=== PATIENT | female | born 1985 | race Caucasian/White ===

== ENCOUNTER 2016-08-23 21:04 | Emergency (ER) | payer MEDICAID ==
[2016-08-23] MEDS ORDERED: OXYCODONE-ACETAMINOPHEN 5-325 MG TABLET PO ONE (23:46)
--- NOTE | 2016-08-23 23:48 | ER Document Report ---
HPI - HPI Patient complains to provider of: Lower back injury Pain Level: 5 Context: The patient is a 31-year-old female who comes emergency department for chief complaint of pain in her lower back, radiating mainly down her left leg posteriorly, she states that she had a history of nerve impingement, takes gabapentin and Murdock for this at home. Patient states that she recently moved here and was helping move off the truck, she states this was a couple of days ago, she states she slipped off of the back of the ramp and landed on her buttocks area. She states she urinated on herself when this happened, however she denies urinary or bowel incontinence or numbness since that time. She states pain has increased. - DERM Skin Color: Normal Past Medical History - General Information source: Patient - Social History Smoking Status: Never Smoker Frequency of alcohol use: None Drug Abuse: None Lives with: Family Family History: Reviewed & Not Pertinent - Note Patient has suicidal ideation: No Patient has homicidal ideation: No - Medical History Medical History: Negative Renal/ Medical History: Denies: Hx Peritoneal Dialysis Surgical Hx: Negative - Immunizations Immunizations up to date: Yes Hx Diphtheria, Pertussis, Tetanus Vaccination: Yes Vertical Provider Document - CONSTITUTIONAL General Appearance: Mild Distress - patient sitting on the end of the bed, appears mildly uncomfortable - INFECTION CONTROL TRAVEL OUTSIDE OF THE [place] IN LAST 30 DAYS: No - HEENT HEENT: Atraumatic, Normocephalic - RESPIRATORY Respiratory: Breath Sounds Normal, No Respiratory Distress O2 Sat by Pulse Oximetry: 97 - CARDIOVASCULAR Cardiovascular: Regular Rate, Regular Rhythm - GI/ABDOMEN Gastrointestinal: Abdomen Soft, Abdomen Non-Tender - BACK Back: negative: Normal Inspection - there is a bruise over the inferior lumbar and upper sacral area noted on examination, otherwise no traumatic findings, there is tenderness generally in the lumbar area bilaterally, there is no saddle anesthesia, full range of motion of both upper and lower extremities, however patient has mild SLR tenderness bilaterally and slightly worse on the right side. Normal distal neurovascular exam. Normal thoracic and cervical exam. - MUSCULOSKELETAL/EXTREMETIES Musculoskeletal/Extremeties: MAEW, FROM, Non-Tender - NEURO Level of Consciousness: Awake, Alert, Appropriate - DERM Integumentary: Warm, Dry, No Rash Course - Re-evaluation Re-evalutation: Patient urinated without difficulty while in the department today has no saddle anesthesia, has ecchymosis over the lower lumbar/sacral area, x-ray imaging shows no acute findings, provided with a copy of her lumbar x-ray, patient ambulating without difficulty after pain medicine, is well-appearing. Discussed treatment with prednisone, will provide with pain medication for injury/sciatica, discussed follow-up, discussed return precautions, patient states understanding and agreement. - Vital Signs Vital signs: Temp Pulse Resp BP Pulse Ox 98 F 73 12 131/93 H 97 08/23/16 21:28 08/23/16 21:28 08/23/16 21:28 08/23/16 21:28 08/23/16 21:28 Discharge - Discharge Clinical Impression: Lower back pain Qualifiers: Chronicity: acute Back pain laterality: bilateral Sciatica presence: with sciatica Sciatica laterality: sciatica of right side Qualified Code(s): M54.41 - Lumbago with sciatica, right side Contusion of lower back Qualifiers: Encounter type: initial encounter Qualified Code(s): S30.0XXA - Contusion of lower back and pelvis, initial encounter Condition: Stable Disposition: HOME, SELF-CARE Additional Instructions: Evaluation and workup is consistent with lower back strain with contusion and also sciatica. X-rays show some degeneration of the disc at the L5-S1 location but no other abnormalities. Take the pain medication as directed, apply heat to her lower back, take the prednisone as directed. Follow-up with primary care. Return to emergency department for any concerning or worsening symptoms including severe pain, loss of bowel or bladder control, developing numbness, or any other concerning symptoms. Prescriptions: Oxycodone HCl/Acetaminophen [Percocet 5-325 mg Tablet] 1 - 2 tab PO Q4H PRN #20 tablet PRN Reason: Prednisone [Deltasone 10 mg Tablet] 10 mg PO ASDIR PRN #21 tablet PRN Reason:
[2016-08-24 03:04] VITALS: BP 123/72
== END 2016-08-24 03:04 | disposition home or self-care (01) ==
LOC: ER 21:04
DX: S30.0XXA Contusion of lower back and pelvis, initial encounter (principal); M54.41 Lumbago with sciatica, right side; M54.5 Low back pain; M79.605 Pain in left leg; X58.XXXA Exposure to other specified factors, initial encounter
CPT/HCPCS: 72110; 72220; 99283

== ENCOUNTER 2017-11-16 21:45 | Emergency (ER) | payer MEDICAID ==
--- NOTE | 2017-11-16 22:18 | ER Document Report ---
ED Medical Screen (RME) - General Chief Complaint: Anxiety Stated Complaint: POSSIBLE ANXIETY Time Seen by Provider: 11/16/17 22:15 Notes: 32-year-old female, chief complaint of possible overdose, EMS reports that she took multiple tablets of her Xanax, patient is refusing to answer these questions at bedside, she states that she did not take anything, she is going to leave. She keeps insisting she is going to leave. I asked has been if she took any medications or if there is a risk that she would try to hurt herself or others, he states that he is afraid answer this because she will hold it against him. TRAVEL OUTSIDE OF THE [place] IN LAST 30 DAYS: No - Related Data Allergies/Adverse Reactions: Penicillins Allergy (Verified 08/23/16 21:31) sulfamethoxazole [From Septra] Allergy (Verified 08/23/16 21:31) trimethoprim [From Septra] Allergy (Verified 08/23/16 21:31) Past Medical History Renal/ Medical History: Denies: Hx Peritoneal Dialysis - Immunizations Immunizations up to date: Yes Hx Diphtheria, Pertussis, Tetanus Vaccination: Yes Physical Exam - Psychological Associated symptoms: Aggressive - stands and steps towards people agressively, Agitated, Angry Doctor's Discharge - Discharge Instructions: Anxiety ([facility])
--- NOTE | 2017-11-16 23:17 | ER Document Report ---
ED General - General Chief Complaint: Anxiety Stated Complaint: POSSIBLE ANXIETY Time Seen by Provider: 11/16/17 22:15 Notes: Patient is a 32-year-old female presents with complaint of of anxiety depression. She just had a car reported today when she was at [facility]. She said she became emotionally overwhelmed and upset. She said the repo person told her that if she cannot pay her bills then she will probably have her kids taken away which scared her very much. She does have a previous history of suicide attempts. She said she has not tried to attempt suicide since she was a teenager. She said since having her children she never tried to attempt suicide as she said she wants to live for her kids. She said she is very anxious and want to come down and therefore she took a couple of Xanax. She is unsure exactly how many but thinks somewhere between 4 or 5 Xanax were taken. Her therefore brought her to the ER for evaluation. Patient now has come down significantly. She says that she is feeling some better. She said she has no intention of hurting herself and actually is anxious to get home to get to her kids. I did talk to her fianc who also confirms that he does not think she is suicidal he said that he would make sure that she would never hurt herself. He also confirms that she loves her children too much would never hurt herself and feels that she looks much improved now. TRAVEL OUTSIDE OF THE [place] IN LAST 30 DAYS: No - Related Data Allergies/Adverse Reactions: Penicillins Allergy (Verified 08/23/16 21:31) sulfamethoxazole [From Septra] Allergy (Verified 08/23/16 21:31) trimethoprim [From Septra] Allergy (Verified 08/23/16 21:31) Past Medical History - Social History Smoking Status: Unknown if Ever Smoked Frequency of alcohol use: None Drug Abuse: None Family History: Reviewed & Not Pertinent - Note Renal/ Medical History: Denies: Hx Peritoneal Dialysis - Immunizations Immunizations up to date: Yes Hx Diphtheria, Pertussis, Tetanus Vaccination: Yes Review of Systems - Review of Systems Notes: My Normal Review Basic REVIEW OF SYSTEMS: CONSTITUTIONAL : Denies fever, chills, or sweats. Denies recent illness. EENT: Denies eye, ear, throat, or mouth pain or symptoms. Denies nasal or sinus congestion. CARDIOVASCULAR: Denies chest pain. RESPIRATORY: Denies cough, cold, or chest congestion. Denies shortness of breath, difficulty breathing, or wheezing. GASTROINTESTINAL: Denies abdominal pain. Denies nausea, vomiting, or diarrhea. GENITOURINARY: Denies difficulty urinating, painful urination, burning, frequency, or blood in urine. MUSCULOSKELETAL: Denies neck or back pain or joint pain or swelling. SKIN: Denies rash or skin lesions. NEUROLOGICAL: Denies altered mental status or loss of consciousness. Denies headache. Denies weakness or paralysis or loss of use of either side. Denies problems with gait or speech. Denies sensory or motor loss. PSYCHIATRIC: Depression and anxiety ALL OTHER SYSTEMS REVIEWED AND NEGATIVE. Physical Exam - Vital signs Vitals: Temp Pulse Resp BP Pulse Ox 97.4 F 89 18 162/91 H 99 11/16/17 22:37 11/16/17 22:37 11/16/17 22:37 11/16/17 22:37 11/16/17 22:37 - Notes Notes: General Appearance: Well nourished, alert, cooperative, no acute distress, no obvious discomfort. Vitals: reviewed, See vital signs table. Head: no swelling or tenderness to the head Eyes: PERRL, EOMI, Conjuctiva clear Lungs: No wheezing, No rales, No rhonci, No accessory muscle use, good air exchange bilaterally. Heart: Normal rate, Regular rythm, No murmur, no rub Skin: warm, dry, appropriate color, no rash Neuro: speech clear, oriented x 3, normal affect, responds appropriately to questions. Psychiatric: Patient occasionally tearful when talking about the episode today but then improves. When I re-enter the room later for reevaluation patient is now playing with her daughter and smiling and laughing with her daughter. Course - Re-evaluation Re-evalutation: 11/16/17 23:24 After speaking with the patient and her fianc I do not feel that she is at risk of hurting herself at this time. She repeatedly says that she would never hurt herself because of her kids and her fianc agrees with this. I informed the patient to only take her Xanax as 1 tablet every 4 hours. I told her not to take more than that as this can be dangerous. I told her that she is more more than welcome to return to ER anytime for reevaluation. I informed her we wanted to return if she has worsening depression, any thoughts of suicide, or she feels unwell. Patient fiance both agree with plan and patient will be discharged home. Dictation of this chart was performed using voice recognition software; therefore, there may be some unintended grammatical errors. - Vital Signs Vital signs: Temp Pulse Resp BP Pulse Ox 97.4 F 89 18 162/91 H 99 11/16/17 22:37 11/16/17 22:37 11/16/17 22:37 11/16/17 22:37 11/16/17 22:37 Discharge - Discharge Clinical Impression: Anxiety Depression Qualifiers: Depression Type: unspecified Qualified Code(s): F32.9 - Major depressive disorder, single episode, unspecified Condition: Good Disposition: HOME, SELF-CARE Instructions: Anxiety ([facility]) Additional Instructions: Please do not take when more than one Xanax every 4 hours. please follow up closely with your psychiatrist. Please return to the ER immediately if you have worsening depression or anxiety or any thoughts of suicide. Referrals: GEORGINA MUKHERJEE MD [Primary Care Provider] - Follow up as needed
[2017-11-16 23:59] VITALS: BP 154/88
== END 2017-11-16 23:22 | disposition home or self-care (01) ==
LOC: ER 21:45
DX: F41.9 Anxiety disorder, unspecified (principal); F32.9 Major depressive disorder, single episode, unspecified; Z88.0 Allergy status to penicillin; Z88.1 Allergy status to other antibiotic agents
CPT/HCPCS: 99283